=== PATIENT | female | born 1960 | race Caucasian/White ===

== ENCOUNTER 2016-03-05 10:20 | Emergency (ER) | payer MEDICAID ==
[2016-03-05] MEDS ORDERED: ASPIRIN 81 MG CHEW TAB ONE (10:34)
== END 2016-03-05 12:57 | disposition home or self-care (01) ==
LOC: ER 10:20
DX: Z79.899 Other long term (current) drug therapy (principal)
CPT/HCPCS: 36415; 70450; 71010; 80053; 82550; 83735; 84484; 85025; 85610; 85730; 93005

== ENCOUNTER 2016-04-05 07:58 | Emergency (ER) | payer MEDICAID | END 2016-04-05 10:47 | disposition home or self-care (01) | LOC: ER 07:58 | DX: G50.1 Atypical facial pain (principal); M79.605 Pain in left leg; R07.2 Precordial pain; R07.89 Other chest pain; Z79.899 Other long term (current) drug therapy | CPT/HCPCS: 36415; 71010; 80053; 82553; 84484; 85025; 85379; 85610; 85730; 93005; 93971 ==